=== PATIENT | female | born 1965 | race Caucasian/White ===

== ENCOUNTER → 2017-10-08 | Outpatient (CLI) | payer BC | LOC: MC.RAD 13:18 | DX: Z12.31 Encounter for screening mammogram for malignant neoplasm of breast (principal); Z98.82 Breast implant status ==

== ENCOUNTER 2017-12-10 08:49 | Day surgery (SDC) | payer BC ==
[~2017-12-10] VITALS: Ht 160 cm; Wt 81.9 kg
[2017-12-10 09:12] VITALS: BP 150/100; PULSE 88; TEMP 98.4
[2017-12-10] MEDS ORDERED: SINGULAIR 110 MG/TAB PO (09:22)
[2017-12-10] MEDS ORDERED: EFFEXOR 75M75 MG/TAB PO (09:22)
[2017-12-10] MEDS ORDERED: ZYRTEC 10MG10 MG PO (09:23)
[2017-12-10] MEDS ORDERED: PRILOTC PO (09:23)
[2017-12-10 10:30] VITALS: BP 164/88; PULSE 84; TEMP 98.1
[2017-12-10 10:45] VITALS: BP 162/85; PULSE 81
[2017-12-10 11:00] VITALS: BP 163/93; PULSE 78
[2017-12-10 11:23] VITALS: BP 175/105; PULSE 95
== END 2017-12-10 11:10 | disposition home or self-care (01) ==
LOC: SDCO 08:49
DX: K21.0 Gastro-esophageal reflux disease with esophagitis (principal); K44.9 Diaphragmatic hernia without obstruction or gangrene; J45.909 Unspecified asthma, uncomplicated; E66.9 Obesity, unspecified; Z68.32 Body mass index [BMI] 32.0-32.9, adult
CPT/HCPCS: J2250; J3010; J7030

== ENCOUNTER → 2018-01-25 | Outpatient (CLI) | payer BC ==
[~2018-01-25] MED LIST: EFFEXOR 75M75 MG/TAB PO; EFFEXOR XR75 MG/CAP PO; MULTI VITAMINS1 TAB PO; PRILOTC PO; SINGULAIR 110 MG/TAB PO; ZYRTEC 10MG10 MG PO
== END ==
LOC: COL.RAD 13:54
DX: K44.9 Diaphragmatic hernia without obstruction or gangrene (principal); K21.9 Gastro-esophageal reflux disease without esophagitis; J69.0 Pneumonitis due to inhalation of food and vomit

== ENCOUNTER 2018-01-26 12:16 | Day surgery (SDC) | payer BC ==
[~2018-01-26] VITALS: Ht 160 cm; Wt 83.1 kg
[2018-01-26] VITALS (8 sets, daily range): BP systolic 140–159; BP diastolic 79–91; PULSE 59–100; TEMP 98.2–98.5
[~2018-01-26 12:16] MED LIST changes: -EFFEXOR XR75 MG/CAP PO; -MULTI VITAMINS1 TAB PO
[2018-01-26] MEDS ORDERED: MULTI VITAMINS1 TAB PO (13:25)
[2018-01-27 04:08] VITALS: BP 126/85; BP 126/858; PULSE 90; TEMP 98.4
[2018-01-27] MEDS ORDERED: EFFEXOR XR75 MG/CAP PO (06:44)
[2018-01-27 07:29] VITALS: BP 148/84; PULSE 79; TEMP 98.3
[2018-01-27 11:06] VITALS: BP 149/87; PULSE 78; TEMP 98.1
[2018-01-27 15:55] VITALS: BP 179/94; PULSE 79; TEMP 98.1
== END 2018-01-27 18:10 | disposition home or self-care (01) ==
LOC: SDCO 12:16 → INPTSU 12:19 → SDCO 12:19 → SURG 18:49 → INPTSU 18:49 → SURG 01-27 18:10 → SDCO 01-27 18:10
DX: K44.9 Diaphragmatic hernia without obstruction or gangrene (principal); K21.9 Gastro-esophageal reflux disease without esophagitis; J45.909 Unspecified asthma, uncomplicated; M19.90 Unspecified osteoarthritis, unspecified site; Z83.3 Family history of diabetes mellitus; Z82.49 Family history of ischemic heart disease and other diseases of the circulatory system
CPT/HCPCS: OP; C1713; J0690; J1100; J1885; J2405; J2704; J3010; J7120